=== PATIENT | female | born 1955 | race Caucasian/White ===

== ENCOUNTER 2018-12-06 14:15 | Inpatient (IN) | payer OTHER ==
[~2018-12-06] VITALS: Ht 154.9 cm; Wt 56.7 kg
[2018-12-06 14:33] VITALS: Ht 154.9 cm; Wt 56.7 kg
[2018-12-06 16:45] LABS: PLATELET COUNT 308 x10^3mcL (130-400)
[2018-12-06 16:47] LABS: RED CELL DISTRIBUTION WIDTH 18.7 % (11.5-14.5)
[2018-12-06 16:54] LABS: CALCIUM 8.4 mg/dL (8.5-10.1); CARBON DIOXIDE 28.5 mmol/L (21-32); CHLORIDE SERUM 98 mmol/L (98-107); CREATININE SERUM 0.8 mg/dL (0.6-1.0); GFR1 > 60 mL/min; GLUCOSE SERUM 94 mg/dL (74-106); POTASSIUM SERUM 3.2 mmol/L (3.5-5.1); SODIUM SERUM 137 mmol/L (136-145)
[2018-12-06 16:58] LABS: ALKALINE PHOSPHATASE 124 U/L (46-116); ALT/SGPT 24 U/L (14-59); AST/SGOT 18 U/L (15-37); BILIRUBIN TOTAL 0.5 mg/dL (0.20-1.00)
[2018-12-06 17:00] LABS: TOTAL PROTEIN, SERUM 8.7 g/dL (6.4-8.2)
[2018-12-06 17:01] LABS: ALBUMIN 2.6 g/dL (3.4-5.0)
[2018-12-06 17:07] LABS: BAND NEUTROPHIL 9 % (0-10); BASOPHIL 0 % (0-2); SEGMENTED NEUTROPHILS 87 % (37-75)
[2018-12-06 17:08] LABS: PLATELET MORPHOLOGY PLATELETS NORMAL; rbc morphology (normal/abnorm) NORMAL (NORMAL)
[2018-12-06 19:13] VITALS: BP 117/68
[2018-12-06 20:36] VITALS: BP 98/52
[2018-12-07 02:53] LABS: microscopic required? YES; urine erythrocyte NEGATIVE (NEGATIVE)
[2018-12-07 03:03] LABS: AMPHETAMINE QUAL UR POSITIVE (See below)
[2018-12-07 05:32] VITALS: BP 87/47
== END 2018-12-07 06:59 | disposition left against medical advice (07) | DRG 720 ==
LOC: ED 14:15 → MU 17:37
PROVIDERS: Emergency Medicine; ADMIT Internal Medicine
DX: A41.9 Sepsis, unspecified organism (principal); L03.115 Cellulitis of right lower limb; E87.6 Hypokalemia; L03.116 Cellulitis of left lower limb; Z53.21 Procedure and treatment not carried out due to patient leaving prior to being seen by health care provider; F19.10 Other psychoactive substance abuse, uncomplicated; T40.2X5A Adverse effect of other opioids, initial encounter; Y92.89 Other specified places as the place of occurrence of the external cause
CPT/HCPCS: G0378; J2543; J3370; J7030; Q0092

== ENCOUNTER 2018-12-17 03:52 | Inpatient (IN) | payer OTHER ==
[~2018-12-17] VITALS: Ht 156.2 cm; Wt 69.0 kg
[2018-12-17 03:55] VITALS: Ht 156.2 cm; Wt 69.0 kg
--- NOTE | 2018-12-17 05:11 | NUR ---
2 UNSUCCESSFUL IV ATTMEPTS BY ME DENG FROM THE LAB AT BEDSIDE FOR BLOOD DRAW CHIKA RN AT BEDSIDE FOR NEXT IV ATTEMPT
--- NOTE | 2018-12-17 05:14 | NUR ---
PT PRESENTS TO ED WITH FRIEND FOR C/O "MAGGOTS IN WOUND". PT STATES THAT SHE HAS HAD BURNING IN BLLE X 2 DAYS. PT HAS BL REDNESS, SWELLING, BLISTERS, AND PUSS WITH PITTING EDEMA TO BL LE. PT HAS SMALL WORM LIKE BUGS SEEN CRAWLING IN AND AROUND TOES ON R LEG. R LEG IS SIGNIFICANTLY MORE HOT THAN L LEG. L LEG IS MORE RED HOWEVER. L LEG ALSO HAS WEEPING BLISTERS TO L GANT WITH SCABS NOTED TO LOWER EXTREMETIES. PT STATES THAT SHE DID NOT NOTICE THE BUGS UNTIL TODAY BECAUSE WHEN SHE SHOWERED SHE HAD BEEN SHOWERING WITH HER SOCKS ON. L PANT LEG SATURATED WITH PUSS. POSITIVE CSM. PT HAS NOTED DECREASED CAP REFILL THAT IS DELAYED TO 4 ON BOTH LEGS. PT IS AXO X 4 AND SPEAKING IN CLEAR AND FULL SENTENCES. PT ADMITS TO USING IV HEROIN TODAY. PT STATES THAT HER LEGS HURT LESS TODAY THAN THEY DID 2 DAYS AGO HOWEVER THE BUGS ARE THE REASON SHE CAME IN. PT CONECTED TO FULL CM, PULSE OX MONITORS. AWAITING IV ACCESS AT THIS TIME WITH LAB STILL AT [facility] FOR ATTEMPTED BLOOD DRAW. MD NICOLE MADE AWARE THAT PT MAY NEED TO HAVE ULTRASOUND GUIDED AND/OR EJ/IJ ACCESS. NAD AT THIS TIME
--- NOTE | 2018-12-17 05:20 | NUR ---
SMALL WHITE ALIVE WORM LIKE BUG REMOVED FROM WOUND AND PLACED IN SPECIMEN CUP FOR MD NICOLE TO VISUALIZE AT THIS TIME
--- NOTE | 2018-12-17 05:36 | NUR ---
MINIMAL BLOOD PULLED BY DOMESTIC MAID ANYA FARR AT BEDSIDE FOR ATTEMPTED IV INSERTION
--- NOTE | 2018-12-17 05:39 | NUR ---
MD NICOLE MADE AWARE PT REFUSING IV PLACEMENT IN HANDS AND REFUSES TO LET US ATTEMPT IV INSERTION ANY MORE. PT STATES SHE WILL ALLOW ATTEMPT IN NECK . MD NICOLE MADE AWARE
--- NOTE | 2018-12-17 06:04 | NUR ---
PT MADE AWARE MD DENNIS WILL ATTEMPT IV ACCESS THROUGH HER NECK VEINS. PT AGREED. AWAITING ON MD FOR IV PLACEMENT AND BLOOD DRAW
[2018-12-17 06:08] LABS: CALCIUM 8.4 mg/dL (8.5-10.1); CHLORIDE SERUM 103 mmol/L (98-107); CREATININE SERUM 0.6 mg/dL (0.6-1.0); GFR1 > 60 mL/min; GLUCOSE SERUM 96 mg/dL (74-106); POTASSIUM SERUM 3.8 mmol/L (3.5-5.1); SODIUM SERUM 142 mmol/L (136-145)
[2018-12-17 06:15] LABS: ALBUMIN 2.6 g/dL (3.4-5.0); ALKALINE PHOSPHATASE 91 U/L (46-116); ALT/SGPT 17 U/L (14-59); AST/SGOT 22 U/L (15-37); BILIRUBIN TOTAL 0.13 mg/dL (0.20-1.00); TOTAL PROTEIN, SERUM 7.9 g/dL (6.4-8.2)
[2018-12-17 06:27] LABS: microscopic required? NO
[2018-12-17 06:39] LABS: BASOPHIL % 0.6 % (0-2)
[2018-12-17 06:39] LABS: UA SPECIFIC GRAVITY 1.025 (1.005-1.035); urine erythrocyte NEGATIVE (NEGATIVE)
[2018-12-17 06:54] LABS: PLATELET COUNT 439 x10^3mcL (130-400); RED CELL DISTRIBUTION WIDTH 19.2 % (11.5-14.5)
--- NOTE | 2018-12-17 07:08 | NUR ---
REPORT GIVEN TO REID MCGEE RN
--- NOTE | 2018-12-17 07:08 | NUR ---
PT STATES SHE HAD TDAP 2 DAYS AGO AT [facility]. MD DENNIS MADE AWARE AND STATES HE WILL CANCEL ORDER.
--- NOTE | 2018-12-17 07:09 | NUR ---
PT REQUESTING NICOTENE PATCH AT THIS TIME. MD DENNIS MADE AWARE. AWAITING NEW ORDERS
--- NOTE | 2018-12-17 07:13 | NUR ---
REPORT RECEIVED FROM LOUIE JOYNER. PT AAOX4; BREATHING E/U. NAD NTOED. ON FULL MONITORS. ALL IVF INFUSING ORDERED. WOUND BEING DRESSED AT THIS TIME
--- NOTE | 2018-12-17 08:35 | NUR ---
PT ATE 100% OF BREAKFAST TRAY. PT AMBULATED TO RESTROOM STEADILY.
--- NOTE | 2018-12-17 08:36 | NUR ---
REPORT GIVEN TO
[2018-12-17] MEDS ORDERED: METHADONE HYDROC5 MG PO (09:01)
--- NOTE | 2018-12-17 09:14 | NUR ---
SHANKAR WALLS HUB CUTTER PAGED FOR PT REQUEST OF NICOTINE PATCH. JACQUI RECEIVING NURSE AT M/S INFORMED OF SAME
--- NOTE | 2018-12-17 09:27 | NUR ---
INFORMED [employer] TECHNICIAN REGARDING PT REQUEST FOR NICOTINE PATCH
--- NOTE | 2018-12-17 09:30 | NUR ---
RECEIVED PATIENT WITH SMALL OPEN AREAS TO THE BUTTOCKS WITH SCABBED AND SCARRING. PATIENT WITH DRESSING TO THE LEFT FOOT AND NOTED TO HAVE HAD MAGGOTS TO FOOT. PATIENT HAS EDEMA TO THE LOWER EXTREMITIES AND HAS WEEPING AND SLOUGHING OF SKIN. PER THE PATIENT SHE HAS AN INFESTATION OF SMALL ANDIE IN HER HOME THAT HAVE INFECTED HER AND HER SIGNIFANT OTHER. SHE NOTED MAGGOTS TO THE FEET AND CAME TO THE ER. SHE HAS BEEN HERE PRIOR ON THE SEVENTH OF THIS MONTH AND SHE HAD LEFT [facility] [facility] AND WAS NOT COMPLETED HER TREATMENT. SHE HAS HISTORY OF METH USE AND HEROIN USE. SHE STATES SHE WAS ON THE CLINIC [facility] PROGRAM BUT COULD NOT GET TO THE CLINIC AND USED HEROIN INSTEAD. SHE ADMITS TO USING METH RECENTLY WELL. SHE HAS BEEN LIVING IN [place] IN A APPARTENT AND THE PATIENT STATES THE APPARTEMENT WAS FUMAGATED PRIOR TO HER LIVING THERE AND SHE STATES SOMETHING WAS IN THE APPARTMENT AND SHE HAD STARTED ITCHING AND THESE HOLES IN HER SKIN STARTED AT THAT TIME. IT HAS BEEN ALMOST A YEAR SHE HAS BEEN LIVING THERE WITH HER SIGNIFICANT OTHER. SHE IS BEING EVICTED OR SHE HAS CHOSEN TO LEAVE SHE IS NOT CLEAR ON THAT AND SOME OTHER HISTORY. SHE HAS HAD SURGERY TO HER LEFT ARM DUE TO A NAIL GETTING IN HER ARM AND BECAME INFECTED. SHE HAS HAD SEVERAL ANKLE FRACTURES AND BROKEN FINGERS OF ALL HER FINGERS. SHE HAS BROKEN A RIB AND HAS BROKEN A BONE IN HER FACE TO THE AREA JUST BELOW THE LEFT EYE. PATIENT HAS BEEN WITHOUT FEVER AND THE WBCS ARE NORMAL. THE CHEST XRAY SHOW LUNGS ARE CLEAR AND PATIENT AHS NO EVIDENCE OF DVT. SHE HAS NOTED LABS OF H AND H OF 8.7/27, PLT CT AT 439, AND BUN AT 22.0 AND CA AT 8.4 AND HAS VITALS AT THIS TIME AT 124/80, 15, 98.0, 89, 99%. WILL CONTINUE TO MONITOR AND ORDER FOR CONTACT ISOLATION RECEIVED FRON THE LOBSTER CATCHER AND NICTOTINE PATCH APPLIED. PATIENT HAS COMPLAINTS OF PAIN OF 8/10 AND TORADOL WAS GIVEN AND EFFECTIVE AT THIS TIME. PATIENT INDICATED SHE WANTS FOR REST NOW. WILL MONITOR FOR ANY ISSUES INDICATED, SUCH WITHDRAWL SYMTOMS OR ALLERGIC REACTION FORM ANY OF THE ANTIBIOTICS GIVEN.
[2018-12-17 10:15] VITALS: BP 131/87
--- NOTE | 2018-12-17 11:14 | NUR ---
PATIENT IS RESTING AT THIS TIME WILL CONTINUE TO MONITOR.
--- NOTE | 2018-12-17 11:43 | NUR ---
FRIEND "MEG" AT BESIDE. PATIENT COMFORTABLE AT THIS TIME. WILL CONTINUE TO MONITOR AND MAINTAIN HER ISOLATION INDICATED.
--- NOTE | 2018-12-17 12:47 | NUR ---
REMINDED THE PATIENT ABOUT ISOLATION AND THE NEED NOT TO WONDER THE HALLWAY AND RISK INFECTING THE OTHER PATIENT.
--- NOTE | 2018-12-17 14:06 | NUR ---
PATIENT IN ISOLATION FOR MAGGOTS AND THE IDENTIFICATION OF ORIGIN IS PENDING. PER THE PARVEZ TTHIS IS CAUSED BY AN INFESTATION IN HER APPARTMENT OF BUGS. SHE STATES SHE CAN NOT SEE THESE BUGS BUT HAS BEEN GETTING ITCHY AND SCRATCHING ND THESE WOUNDS APPEAR. CONTINUED ON IV ANTIBIOTICS AND MONITORING ANY ADVERSE REACTION NOTED.
--- NOTE | 2018-12-17 15:53 | NUR ---
DR. SCHRADER, DPM, ROUNDED TO SEE THE PATIENT. BILATERAL LEGS CLEANED AND XEROFOAM DRESSING APPLIED BETWEEN RIGHT TOES. TWO CHIARA BOOTS APPLIED TO BOTH LEGS WITH FOUR KATE BANDAGES APPLIED TO LEGS. PATIENT INSTRUCTED TO TAKE OFF DRESSINGS AFTER 7 DAYS ON 12/24/18 PRIOR TO DISCHARGE FOR NURSE TO TAKE OFF OR PATIENT IS ALLOWED TO TAKE OFF AT HOME. PATIENT EDUCATED AND MADE AWARE BY THE DR. WILL CONTINUE TO MONITOR. CALL LIGHT WITHIN REACH.
--- NOTE | 2018-12-17 16:09 | NUR ---
PATIENT ADMITS TO SKIN POPPING AND SHE HAS BEEN DOING ON A REGULAR. PATIENT IS COMFORTABLE AT THIS TIME.
--- NOTE | 2018-12-17 17:12 | NUR ---
PATIENT RESTING IN BED. NO SIGNS OF DISTRESS NOTED. WILL CONTINUE TO MONITOR. CALL LIGHT WITHIN REACH.
[2018-12-17 17:54] VITALS: BP 96/63
--- NOTE | 2018-12-17 19:56 | NUR ---
RECEIVED PATIENT IN BED AWAKE, ALERT AND ORIENTED WITH NO SIGN OF DISTRESS NOTED. BREATHING EASY AND NONLABOR WITH CLEAR BS SATTING AT 97% RA. SWELLING TO BLE WITH DRESSING CDI NEWLY CHANGED BY PAPER COATER. IV TO RT EXTERNAL JUGULAR INTACT AND INFUSING WELL. WILL CONTINUE TO MONITOR. CALL LIGHT WITHIN REACH.
[2018-12-17 21:15] VITALS: BP 101/62
--- NOTE | 2018-12-18 02:33 | NUR ---
APPEAR TO BE SLEEPING WITH NO SIGN OF DISTRESS NOTED. WILL CONTINUE TO MONITOR.
--- NOTE | 2018-12-18 05:10 | NUR ---
CHECKED AT INTERVALS FOR NEEDS AND COMFORT, DRESSING TO BLE CDI.
[2018-12-18 05:49] VITALS: BP 107/60
--- NOTE | 2018-12-18 06:07 | NUR ---
PATIENT REFUSED AM LAB DRAW TO MAKE AWARE.
--- NOTE | 2018-12-18 08:40 | NUR ---
RECIEVED PATIENT SLEEPING QUIETLY HAS THE BP TAKEN AND NOW AWAKE AND SHE HAS NO COMPLAINTS OF PAIN AND HAS HAS DRESSINGS INTACT TO THE BILATERAL LOWER EXTREMITES. SHE HAS BEEN OOB AND TOLERATED WELL. CONTINUED ON IV ANTIBIOTICS AND NO ADVERSE REACTION NOTED SO FAR. PATIENT HAS 98.3, 79, 107/60, 98% ON ROOM AIR. PATIENT HAD BEEN SEEN BY PODIATRY YESTERDAY AND CHIARA BOOTS APPLIED AND INTACT.PATIENT AHS BEEN NOTED TO BE A DRUG USER BUT FOR SOME REASON SHE HAS TRIED TO HIDE THIS FACT WITH [employer] OF SOME KIND OF BUG INFESTAION. SHE ADMITTED THAT SHE SKIN POPS AND THIS IS THE ISSUE SHE HAS WITH THE BUTTOCKS ON THE RIGHT AND THE HOLES AND VARIOUS STAGES OF HEALING TO THE AREA. PATIENT NOTED TO BE A HEROIN ADDICT AND WAS ON [facility] BUT HAS SINCE NOT BEEN ABOUT TO GET TO THE CLINIC AND TOOK HEROIN INSTESD. SHE ALSO WAS TAKING METH JUST A FEW DAYS AGO. PATIENT HAS NOTED ANEMIA AND NO LABS YET THIS AMD DOCUMENTED.SHE HAS H AND H OF 8.7/27. RIGHT JUGULAR IS POSITIONAL BUT REMAINS INTACT. CONTINUED ON CLINDOMYCIN AND ZOSYN ORDERED.
[2018-12-18 09:00] VITALS: BP 94/57
--- NOTE | 2018-12-18 09:54 | NUR ---
Patient found in bed. Alert and oriented x 4. No signs of distress noted. No Shortness of Breath. Patient refused protonix IV to be administered through the right EJ IV catheter. Documented accordingly. Will continue to monitor. Call light within reach.
--- NOTE | 2018-12-18 12:47 | NUR ---
IV REMOVED AND PATIENT TOLERATED THE DIET AND WANTS TO LEAVE. 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 SHE WANTS TO GO HER ADDICTION IS HER SMOKING AND HER HEROIN AND HER FOOD AND NOW SHE WANTS TO CONTINUE HERE. SHE STATES SHE IS SORRY AND HAS TO LEAVE. PATIENT WANTS TO GET STAFF ARRANGE [facility].THIS SHE WILL NEED TO FOLLOW WITH THE CLINIC POST THE DISCHARGE.ENCOURAGE HER TO FOLLOW UP WITH HER DOCTOR WELL FOR THE LEG AND DRESSING CHANGES.
--- NOTE | 2018-12-18 15:05 | NUR ---
WOUND CARE CONSULT NOT DONE,SPOKE TO PRIMARY RN, PT. DISCHARGED.
== END 2018-12-18 11:35 | disposition left against medical advice (07) | DRG 383 ==
LOC: ED 03:52 → MU 07:48
PROVIDERS: Emergency Medicine; ADMIT Internal Medicine
DX: L03.115 Cellulitis of right lower limb (principal); N17.0 Acute kidney failure with tubular necrosis; E43 Unspecified severe protein-calorie malnutrition; F11.20 Opioid dependence, uncomplicated; E86.0 Dehydration; B87.1 Wound myiasis; F15.10 Other stimulant abuse, uncomplicated; F17.210 Nicotine dependence, cigarettes, uncomplicated; L03.116 Cellulitis of left lower limb; Z68.25 Body mass index [BMI] 25.0-25.9, adult; Z53.21 Procedure and treatment not carried out due to patient leaving prior to being seen by health care provider
CPT/HCPCS: 90715; 99406; C9113; G0378; J0295; J1885; J2543; J3370; J3490; J7030